=== PATIENT | female | born 1970 | race Hispanic/Latino ===

== ENCOUNTER 2022-11-23 11:30 | Emergency (ER) | payer OTHER ==
--- OUTSIDE RECORDS SUMMARY | 2022-11-23 11:33 | XMS REPORT | Continuity of Care Document ---
:1970 Author Organization [facility] t Address [address] [place] [address] Care Team Providers Name Role Phone Mathew Lawson MD, Laurent Primary Care Physician [phone] Marcie Narvaez Attending Clinician Unavailable Leann Hackett LVN Attending Clinician Unavailable Tracey MONAHAN, Femi Attending Clinician Manny Wells MD Attending Clinician [phone] Rosi Liu MD Attending Clinician Shahab Sylvester MD Attending Clinician [phone] Danelle Castillo MD Attending Clinician Physician, No Primary or Family Admitting Clinician Unavaila SHAHAB Barnes Admitting Clinician Unavailable Payers Payer Name Policy Type Policy Number Effective Date Expiration Date S ource Problems Condition Condition Condition Status Onset Resolution Last Treating Co mments Source Name Details Category Date Date Treatment Clinician Date - - Diagnosis Active 2020-112021-09-01 Memoria ENCNTR ENCNTR 0-06 12:01:00 l SCREEN SCREEN 00:01: [place] MAMMOGRAM MAMMOGRAM 00 FOR MA FOR MA Active 08/23/2021 SARMAD OPID [place] Acute Acute Disease Active [facility]i liver liver 12-12 st failure failure 00:00: Hospita without without 00 l hepatic hepatic coma coma Allergies, Adverse Reactions, Alerts This patient has no known allergies or adverse reactions. Social History Social Habit Start Date Stop Date Quantity Comments Source Sex Assigned At [birth year] [facility] 00:00:00 00:00:00 Smoking Status Start Date Stop Date Source Never smoked tobacco [facility] Medications Ordered Filled Start Stop Current Ordering Indication Dosage Frequency Signature Comments Components Source Medication Medication Date Date Medication? Clinician (SIG) Name Name famotidine Yes 20mg Take 20 mg M ethodi (PEPCID) 20 5-[address] MG tablet 09:28: daily. Hospit a 41 l Lactobacill Yes 1{tbl} QD Take 1 Me thodi us 5-[address] acidoph-L.b 09:28: mouth Hospi ta ulgar 41 daily. l (FLORANEX) 1 million cell tablet famotidine Yes 20mg Take 20 mg M ethodi (PEPCID) 20 5-[address] MG tablet 09:28: daily. Hospit a 41 l Lactobacill Yes 1{tbl} QD Take 1 Me thodi us 5-[address] acidoph-L.b 09:28: mouth Hospi ta ulgar 41 daily. l (FLORANEX) 1 million cell tablet gabapentin 2020- No 100mg Q.5D Take 1 Met hodi (Neurontin) 5-05 06-[address] 100 mg 00:00: 04:59 (100 mg Hospita capsule 00 :00 total) by l mouth 2 (two) times a day for 30 days. spironolact Yes Method i one 3-19 st (ALDACTONE) 00:00: Hospit a 50 MG 00 l tablet spironolact Yes Method i one 3-19 st (ALDACTONE) 00:00: Hospit a 50 MG 00 l tablet mirtazapine 2020- No 15mg QD Take 1 Met hodi (Remeron) 3-03 04-03 tablet (15 st 15 MG 00:00: 04:59 mg total) Hospit a tablet 00 :00 by mouth l nightly for 30 days. spironolact No 50mg QD Take 1 Met hodi one 12-2308 tablet (50 st (Aldactone) 00:00: 05:59 mg total) Hospita 50 MG 00 :00 by mouth l tablet daily for 30 days. folic acid No 1mg QD Take 1 Meth lisa (FOLVITE) 1 12-15 tablet (1 st MG tablet 00:00: 05:59 mg total) Ho spita 00 :00 by mouth l daily for 30 days. Immunizations Ordered Immunization Filled Immunization Date Status Commen ts Source Name Name [facility] COVID-19 [facility] 2021-03-14 Completed Meth odist VACCINATION 00:00:00 [facility] PFIZER COVID-19 MRNA 2021-03-14 Completed Meth odist VACCINATION 00:00:00 [facility] PFIZER COVID-19 MRNA 2021-02-21 Completed Meth odist VACCINATION 00:00:00 [facility] PFIZER COVID-19 [facility] 2021-02-21 Completed Meth odist VACCINATION 00:00:00 Hospital Vital Signs Vital Name Observation Time Observation Value Comments Source Systolic blood 2021-03-22 14:28:00 127 mm[Hg] [facility] pressure Diastolic blood 2021-03-22 14:28:00 63 mm[Hg] [facility] pressure Heart rate 2021-03-22 14:28:00 72 /min [facility] Body height 2021-03-22 14:28:00 149.9 cm [facility] Body weight 2021-03-22 14:28:00 56.337 kg [facility] BMI 2021-03-22 14:28:00 25.09 kg/m2 [facility] Oxygen saturation in 2021-03-22 14:28:00 100 /min [facility] Arterial blood by Pulse oximetry Body temperature 2021-01-18 15:39:00 36.67 Meggan [facility] Respiratory rate 2020-12-14 21:19:52 18 /min [facility] Procedures Procedure Date / Time Performing Clinician Source Performed CBC WITH PLATELET AND 2021-03-20 16:21:00 Femi Webb [facility] DIFFERENTIAL COMPREHENSIVE METABOLIC 2021-03-20 16:21:00 Tracey, Femi [facility] PANEL PROTHROMBIN TIME WITH INR 2021-03-20 16:21[facility] WITH PLATELET AND 2021-01-18 16:45:00 [facility] DIFFERENTIAL COMPREHENSIVE METABOLIC 2021-01-18 [facility] WITH INR 2021-01-18 16:45:00 [facility] CBC WITH PLATELET AND 2020-12-30 19:07:00 [facility] DIFFERENTIAL COMPREHENSIVE METABOLIC 2020-12-30 [facility]:07[facility] PROTHROMBIN TIME WITH INR 2020-12-30 19:07:00 [facility] CBC WITH PLATELET AND 2020-12-20 17:23:00 [facility] DIFFERENTIAL BASIC METABOLIC PANEL 2020-12-20 17:23[facility] 2020-12-20 17:23:00 [facility] PROTHROMBIN TIME WITH INR 2020-12-20 17:23:00 [facility] HC COMPLETE BLD COUNT 2020-12-14 10:25:00 [facility] Ebrahim BASIC METABOLIC PANEL 2020-12-14 10:25:00 [facility] Ebrahim MAGNESIUM LEVEL 2020-12-14 10:25:00 Shahab Sylvester Ho spital Ebrahim PHOSPHORUS LEVEL 2020-12-14 10:25:00 Shahab Sylvester H ospital Ebramem PROTHROMBIN TIME WITH INR 2020-12-14 10:25:00 [facility] Ebrahim ESTIMATED GFR 2020-12-14 10:25:00 Shahab Sylvester Ho spital Ebrahim HEPATIC FUNCTION PANEL 2020-12-14 10:25:00 [facility] Ebrahim OSMOLALITY, SERUM 2020-12-13 19:00:00 [facility] OSMOLALITY, URINE 2020-12-13 18:00:00 [facility] SODIUM LEVEL 2020-12-13 13:39:00 [facility] spital [facility] HCG QUALITATIVE, URINE 2020-12-13 09:17:00 [facility] SCREEN URINE CULTURE 2020-12-13 09:17:00 [facility] URINALYSIS SCREEN AND 2020-12-13 09:17:00 [facility] MICROSCOPY, WITH REFLEX TO CULTURE FOLATE LEVEL 2020-12-13 09:02:00 Willie Ferreira [facility] HEPATITIS A ANTIBODY 2020-12-13 09:02:00 [facility] TOTAL HEPATITIS B CORE ANTIBODY 2020-12-13 09:02:00 [facility] TOTAL HEPATITIS B SURFACE 2020-12-13 09:02:00 [facility] ANTIBODY HEPATITIS B SURFACE 2020-12-13 09:02:00 [facility]av[facility]unesTapia [facility] ANTIGEN VITAMIN B12 LEVEL 2020-12-13 09:02:00 [facility] TOTAL IRON BINDING 2020-12-13 09:02:00 [facility] CAPACITY LIVER-KIDNEY MICROSOME 2020-12-13 09:02:00 [facility] AB, IGG IMMUNOGLOBULIN A 2020-12-13 09:02:00 [facility] PROTHROMBIN TIME WITH INR 2020-12-13 09:02:00 [facility] HEPATIC FUNCTION PANEL 2020-12-13 09:02:00 [facility] MAGNESIUM LEVEL 2020-12-13 09:02:00 Shahab Sylvester Ho spital Ebrahim PHOSPHORUS LEVEL 2020-12-13 09:02:00 Shahab Sylvester H ospital Ebrahim HC COMPLETE BLD COUNT 2020-12-13 09:02:00 [facility] W/AUTO DIFF Ebrahim BASIC METABOLIC PANEL 2020-12-13 09:02:00 [facility] Ebrahim ESTIMATED GFR 2020-12-13 09:02:00 Shahab Sylvester Ho spital [facility] FACTOR V ASSAY 2020-12-13 09:02:00 Shahab Sylvester Ho spital Ebrahim HEPATITIS A ANTIBODY IGM 2020-12-13 09:02:00 DaishaRosi [facility] ANTI SMOOTH MUSCLE AB 2020-12-13 09:02:00 [facility] TITER ALCOHOL LEVEL, BLOOD 2020-12-13 09:02:00 Patricia georgemad [facility] HEPATITIS C ANTIBODY 2020-12-13 09:02:00 [facility] ALPHA-1 ANTITRYPSIN LEVEL 2020-12-13 09:02:00 [facility] ANTI SMOOTH MUSCLE AB 2020-12-13 09:02:00 [facility] SCREEN CERULOPLASMIN LEVEL 2020-12-13 09:02:00 [facility] FERRITIN LEVEL 2020-12-13 09:02:00 [facility] n[facility]mad [facility] CT ABDOMEN PELVIS W WO 2020-12-13 06:40:14 [facility] CONTRAST COVID-19 QUALITATIVE 2020-12-13 05:47:00 Daisha Rosi [facility] RT-PCR HC COMPLETE BLD COUNT 2020-12-13 03:47:00 Norm Deal [facility] W/AUTO DIFF COMPREHENSIVE METABOLIC 2020-12-13 03:47:00 [facility] PANEL LIPASE LEVEL 2020-12-13 03:47:00 [facility] AMYLASE LEVEL 2020-12-13 03:47:00 [facility] ESTIMATED GFR 2020-12-13 03:47:00 [facility] BILIRUBIN DIRECT 2020-12-13 03:47:00 [facility] CT ABD/PELVIC EXTERNAL 2020-12-12 21:42:00 DaishaRosi [facility] STUDY Plan of Care Planned Activity Planned Date Details Comments Source Future Scheduled 2022-11-12 HEPATITIS B VACCINES Met [facility] Test 07:11:52 (1 of 3 - 3-dose series) [code = HEPATITIS B VACCINES (1 of 3 - 3-dose series)] Future Scheduled 2022-11-12 Screening for [facility] Test 07:11:52 malignant neoplasm of cervix (procedure) [code = 417075621] Future Scheduled 2022-11-12 BREAST CANCER [facility] Test 07:11:52 SCREENING [code = BREAST CANCER SCREENING] Future Scheduled 2022-11-12 COLONOSCOPY SCREENING [facility] Test 07:11:52 [code = COLONOSCOPY SCREENING] Future Scheduled 2022-11-12 COVID-19 VACCINE (3 - Me [facility] Test 07:11:52 Booster for Pfizer series) [code = COVID-19 VACCINE (3 - Booster for Pfizer series)] Future Scheduled 2022-11-12 SHINGLES VACCINES (1 Met [facility] Test 07:11:52 of 2) [code = SHINGLES VACCINES (1 of 2)] Future Scheduled 2022-11-12 INFLUENZA VACCINE [facility] Test 07:11:52 [code = INFLUENZA VACCINE] Future Scheduled 2021-11-02 Screening for [facility] Test 12:44:30 malignant neoplasm of cervix (procedure) [code = 543502888] Future Scheduled 2021-11-02 BREAST CANCER [facility] Test 12:44:30 SCREENING [code = BREAST CANCER SCREENING] Future Scheduled 2021-11-02 COLONOSCOPY SCREENING [facility] Test 12:44:30 [code = COLONOSCOPY SCREENING] Future Scheduled 2021-11-02 [facility]INES [facility] Test 12:44:30 (#1) [code = SHINGLES VACCINES (#1)] Future Scheduled 2021-11-02 INFLUENZA VACCINE [facility] Test 12:44:30 [code = INFLUENZA VACCINE] Future Scheduled 2021-11-02 COVID-19 VACCINE (3 - [facility] Test 12:44:30 Booster for Pfizer series) [code = COVID-19 VACCINE (3 - Booster for Pfizer series)] Encounters Start End Encounter Admission Attending Care Care Encounter Source Date/Time Date/Time Type Type Clinicians Facility Department ID 2022-10-02 2022-10-02 Inpatient Marcie Gibbons [facility] RADI [id number] [facility] 11:00:00 11:00:00 21 [facility] 2021-09-01 2021-09-02 Outpt Diag nullFlavo [facility] [id number] [facility] 16:48:00 04:59:00 Services r Outpatient 00 l Imaging [facility] 2021-05-11 2021-05-11 Orders Serban, 1.2.840.1 [id number] Methodi 00:00:00 00:00:00 Only Leann [address]017.1.[address] 3.430.2.7 Hospit a .3.872161 l .8 2021-04-03 2021-04-03 Telemedici Tracey, 1.2.840.1 [id number] Methodi 15:26:31 15:35:15 [address] Femi [address]66.1.[address] 3.430.2.7 Hospit a .3.502066 l .8 2021-03-22 2021-03-22 Office Tracey, 1.2.840.1 [id number] Methodi 09:18:30 10:13:25 Visit Femi 65017.1.[address] 3.430.2.7 Hospit a .3.816319 l .8 2021-03-22 2021-03-22 Travel 1.2.840.1 1.2.117.144 [id number] Methodi 00:00:00 00:00:[address] 3.430.2.7 0.2.7.3.698 Ho spita .3.116145 084.8 l .8 2021-03-14 2021-03-14 Clinical Russell, 1.2.840.1 [id number] Methodi 12:00:55 12:05:55 Support Manny 91502.1.[address] P. 3.430.2.7 Hospit a .3.125361 l .8 2021-02-21 2021-02-21 Clinical 1.2.840.1 [id number] Methodi 12:03:35 12:08:[address] 3.430.2.7 Hospit a .3.241752 l .8 2021-01-18 2021-01-18 Office Tracey, 1.2.840.1 [id number] Methodi 09:36:07 10:40:55 Visit Femi 19589.1.[address] 3.430.2.7 Hospit a .3.175322 l .8 2021-01-18 2021-01-18 Travel 1.2.840.1 1.2.843.890 [id number] Methodi 00:00:00 00:00:[address] 3.430.2.7 0.2.7.3.698 Ho spita .3.670094 084.8 l .8 2020-12-23 2020-12-23 [facility] Serban, 1.2.840.1 [id number] Methodi 00:00:00 00:00:00 Only Leann 80560.1.[address] 3.430.2.7 Hospit a .3.452009 l .8 2020-12-21 2020-12-21 Office Tracey, 1.2.840.1 [id number] Methodi 12:20:38 12:52:50 Visit Femi 28342.1.[address] 3.430.2.7 Hospit a .3.069198 l .8 2020-12-21 2020-12-21 Travel 1.2.840.1 1.2.723.033 [id number] Methodi 00:00:00 00:00:[address] 3.430.2.7 0.2.7.3.698 Ho spita .3.449931 084.8 l .8 2020-12-16 2020-12-16 Orders Serban, 1.2.840.1 [id number] Methodi 00:00:00 00:00:00 Only Leann 58953.1.[address] 3.430.2.7 Hospit a .3.317796 l .8 2020-12-12 2020-12-14 Hospital Rosi Liu 1.2.840.1 [id number] Methodi 19:30:00 18:15:00 Encounter Shahab Sylvester 85631.1.[address] Vo, Le 3.430.2.7 Hospit a .3.604811 l .8 Results Test Description Test Time Test Comments Results Result Comments Source Comprehensive metabolic panel 2021-03-21 08:45:00 Test Item Value Reference Range Interpretation Comme nts Glucose (test code = 99 mg/dL 65-99 Fastin g reference 2345-7) interval BUN (test code = 3094-0) 9 mg/dL 7-25 Creatinine (test code = 0.49 mg/dL 0.50-1.10 L 2160-0) EGFR Non-Afr. Belarusian See_Comment [Aut omated message] (test code = 2775) The [employer] which generated this result transmitted ref erence range: > OR = 6 0 mL/min/1.73m2. The reference range was not used to int erpret this result as normal/abnormal . EGFR See_Comment [Auto mated message] (test code = 2774) The [employer] which generated this result transmitted ref erence range: > OR = 6 0 mL/min/1.73m2. The reference range was not used to int erpret this result as normal/abnormal . BUN/creatinine ratio (test See_Comment [Automated message] code = 3097-3) The system ich generated this result transmitted ref erence range: 6 - 22 ( calc). The reference r maria luz was not used to interpret this result as normal/abnor mal. Sodium (test code = 136 mmol/L 288-220 1218-2) Potassium (test code = 3.9 mmol/L 3.5-5.3 2823-3) Chloride (test code = 104 mmol/L 98-110 2075-0) CO2 (test code = 8-9) 24 mmol/L 20-32 Calcium (test code = 9.7 mg/dL 8.6-10.2 29425-3) Protein (test code = 7.4 g/dL 6.1-8.1 2885-2) Albumin, S (test code = 4.0 g/dL 3.6-5.1 1751-7) Globulin, total (test code See_Comment [Automated message] = 63456-2) The system [employer] h generated this result transmitted ref erence range: 1.9 - 3. 7 g/dL (calc). The ref erence range was not u sed to interpret this result as normal/abnor mal. Albumin/globulin ratio See_Comment [Aut omated message] (test code = 1759-0) The [facility] tem which generated this result transmitted ref erence range: 1.0 - 2. 5 (calc). The ref erence range was not u sed to interpret this result as normal/abnor mal. Total bilirubin (test code 2.0 mg/dL 0.2-1.2 H = 1974-) Alkaline phosphatase (test 98 U/L 31-125 code = 6768-6) AST (test code = 1920-8) 37 U/L 10-35 H ALT (test code = 1742-6) 17 U/L 6-29 ARTHUR (test code = ARTHUR) FASTING:YES FASTING: YES RAC (test code = RAC) Performing Organization Information: Site ID: RGA [facility]: [facility] Address: [address] [place] [id number] Director: Sb Collier Lab Interpretation (test Abnormal code = 57651-2) [facility] with platelet and [id number] 08:45:00 Test Item Value Reference Range Interpretation Comments WBC (test code = See_Comment [Automated 6690-2) message] The system which generated this result transmitted reference range : 3.8 - 10.8 Thousand/uL. Th e reference range was not used to interpret this result as normal/abnormal . RBC (test code = See_Comment L [Automated 789-8) message] The system which generated this result transmitted reference range : 3.80 - 5.10 Million/uL. The reference range was not used to interpret this result as normal/abnormal . HGB (test code = 12.3 g/dL 11.7-15.5 718-7) HCT (test code = 36.3 % 35.0-45.0 4544-3) MCV (test code = 98.9 fL 80.0-100.0 787-2) MCH (test code = 33.5 pg 27.0-33.0 H 785-6) MCHC (test code = 33.9 g/dL 32.0-36.0 786-4) RDW (test code = 11.8 % 11.0-15.0 788-0) Platelet count (test See_Comment [Autom ated code = 777-3) message] The system which generated this result transmitted reference range : 140 - 400 Thousand/uL. Th e reference range was not used to interpret this result as normal/abnormal . MPV (test code = 11.9 fL 7.5-12.5 776-5) Neutrophils, See_Comment [Automated absolute (test code message] The = 751-8) system which generated this result transmitted reference range : 1,500 - 7,800 cells/uL. The reference range was not used to interpret this result as normal/abnormal . Lymphocytes, See_Comment [Automated absolute (test code message] The = 731-0) system which generated this result transmitted reference range : 850 - 3,900 cells/uL. The reference range was not used to interpret this result as normal/abnormal . Monocytes, absolute See_Comment [Automa jojo (test code = 742-7) message] The system which generated this result transmitted reference range : 200 - 950 cells/uL. The reference range was not used to interpret this result as normal/abnormal . Eosinophils, See_Comment [Automated absolute (test code message] The = 711-2) system which generated this result transmitted reference range : 15 - 500 cells/uL. The reference range was not used to interpret this result as normal/abnormal . Basophils, absolute See_Comment [Automa jojo (test code = 704-7) message] The system which generated this result transmitted reference range : 0 - 200 cells/u L. The reference range was not used to interpr et this result as normal/abnormal . Neutrophils (test 53.1 % code = 770-8) Lymphocytes (test 33.3 % code = 736-9) Monocytes (test code 7.2 % = 5905-5) Eosinophils (test 5.6 % code = 713-8) Basophils + RC (test 0.8 % code = 706-2) ARTHUR (test code = FASTING:YES ARTHUR) FASTING: YES RAC (test code = Performing RAC) Organization Information: Site ID: [facility] Name: [facility] Address: [address] [place] [id number] Director: Sb Collier Lab Interpretation Abnormal (test code = 80914-4) [facility] [id number] 08:45:00 Test Item Value Reference Range Interpretation Comments INR (test code = Reference R maria luz 6301-6) 0.9-1.1Moderate -i ntensity Warfar in Therapy 2.0-3.0Higher-i nt ensity Warfarin Therapy 3.0-4.0 Prothrombin time See_Comment H For additio nal (test code = 5902-2) informa tion, please refer [email or web address] io n.questdiagnost onkea/faq/FAQ10 4( This link is being provided for informational/e du cational purpos es only.) [Automat ed message] The system which generated this result transmitted reference range : 9.0 - 11.5 sec. The reference range was not used to interpr et this result as normal/abnormal . ARTHUR (test code = FASTING:YES ARTHUR) FASTING: YES RAC (test code = Performing RAC) Organization Information: Site ID: [facility] Name: [facility] Address: [address] [place] [phone] Director: Sb Collier Lab Interpretation Abnormal (test code = 01636-0) [facility] metabolic [id number] 10:48:00 Test Item Value Reference Range Interpretation Comments Glucose (test code = 88 mg/dL 65-99 Fasti ng 2345-7) reference interval BUN (test code = 7 mg/dL 7-25 3094-0) Creatinine (test 0.45 mg/dL 0.50-1.10 L code = 2160-0) EGFR Non-Afr. See_Comment [Automated Belarusian (test code message] The = 3425) system which generated this result transmitted reference range : > OR = 60 mL/min/1.73m2. The reference range was not used to interpr et this result as normal/abnormal . EGFR See_Comment [Automated Belarusian (test code message] The = 56647-2) system which generated this result transmitted reference range : > OR = 60 mL/min/1.73m2. The reference range was not used to interpr et this result as normal/abnormal . BUN/creatinine ratio See_Comment [Autom ated (test code = 3097-3) message ] The system which generated this result transmitted reference range : 6 - 22 (calc). The reference range was not used to interpr et this result as normal/abnormal . Sodium (test code = 138 mmol/L 415-612 9133-2) Potassium (test code 3.6 mmol/L 3.5-5.3 = 2823-3) Chloride (test code 108 mmol/L 98-110 = 2075-0) CO2 (test code = 25 mmol/L 20-32 8-9) Calcium (test code = 8.8 mg/dL 8.6-10.2 75095-0) ARTHUR (test code = FASTING:YESFASTING ARTHUR) : YES RAC (test code = Performing RAC) Organization Information: Site ID: RGA Name: [facility] Address: [address] [place] [phone] Director: Sb Collier [facility] Interpretation Abnormal (test code = 54281-7) [facility] [id number] 10:48:00 Test Item Value Reference Range Interpretation Comments Protein (test code = 6.6 g/dL 6.1-8.1 5-2) Albumin, S (test 2.9 g/dL 3.6-5.1 L code = 1751-05) Globulin, total See_Comment [Automated (test code = message] The ) system which generated this result transmitted reference range : 1.9 - 3.7 g/dL (calc). The reference range was not used to interpret this result as normal/abnormal . Albumin/globulin See_Comment L [Automated ratio (test code = message] The ) system which generated this result transmitted reference range : 1.0 - 2.5 (calc ). The reference range was not used to interpr et this result as normal/abnormal . Total bilirubin 8.4 mg/dL 0.2-1.2 H (test code = 1974-12) Bilirubin direct 3.9 mg/dL See_Comment H [Automated (test code = 1968-05) message ] The system which generated this result transmitted reference range : < OR = 0.2. The reference range was not used to interpret this result as normal/abnormal . Bilirubin, indirect See_Comment H [Automa jojo (test code = 1970-11) message ] The system which generated this result transmitted reference range : 0.2 - 1.2 mg/dL (calc). The reference range was not used to interpret this result as normal/abnormal . Alkaline phosphatase 194 U/L 31-125 H (test code = 6768-6) AST (test code = 105 U/L 10-35 H 1920-8) ALT (test code = 39 U/L 6-29 H 1742-6) ARTHUR (test code = FASTING:YESFASTING ARTHUR) : YES RAC (test code = Performing RAC) Organization Information: Site ID: [id number] Name: [facility] Address: [address] [place] [id number] Director: Sb [facility] Interpretation Abnormal (test code = 05991-6) [facility]
[2022-11-23 12:32] LABS: MCV 116.2 fL (80-100); MPV 7.2 fL (7.6-11.3); RBC Red Blood Cell Count 2.41 M/uL (3.86-4.86)
[2022-11-23 13:37] LABS: Blood Morphology Comment NOTED (NOT SEEN); Macrocytosis 3+; Platelet Estimate ADEQ; White Blood Cell Scan OK (OK)
[2022-11-23 14:07] LABS: Albumin 1.9 g/dL (3.4-5.0); Magnesium 1.8 mg/dL (1.6-2.4); Phosphorus 2.6 mg/dL (2.5-4.9); Potassium 2.6 mmol/L (3.5-5.1)
[2022-11-23] MEDS ORDERED: POTASSIUM 25 MEQ EFFERV TAB ONE (14:26)
[2022-11-23] MEDS ORDERED: KCL 20 MEQ/100 mL IVPB 200 ML IV ONE (14:26)
--- NOTE | 2022-11-23 16:59 | EDPHYS ---
Physician Documentation [facility] Name: Flori Person Age: 52 yrs Sex: Female : 1970 Arrival Date: 11/23/2022 Time: 11:32 Bed 24 Private MD: Marcie Narvaez ED Physician Natanael Rocha HPI: 11/23 15:50 This 52 yrs old Female presents to ER via Ambulatory with complaints of snw Abnormal Lab Results - potassium. 15:50 Onset: The symptoms/episode began/occurred acutely. Associated signs and symptoms: The snw patient has no apparent associated signs or symptoms. The patient has been recently seen by a physician:. 15:51 Severity of symptoms: At their worst the symptoms were mild. 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 - Social history:: Smoking status: Patient denies any tobacco usage or history of. ROS: 15:50 All other systems are negative. snw Exam: 15:48 Constitutional: This is a well developed, well nourished patient who is awake, alert, snw and in no acute distress. Head/Face: Normocephalic, atraumatic. ENT: Nares patent. No nasal discharge, no septal abnormalities noted. Tympanic membranes are normal and external auditory canals are clear. Oropharynx with no redness, swelling, or masses, exudates, or evidence of obstruction, uvula midline. Mucous membranes moist. Neck: Trachea midline, no thyromegaly or masses palpated, and no cervical lymphadenopathy. Supple, full range of motion without nuchal rigidity, or vertebral point tenderness. No Meningismus. Chest/axilla: Normal chest wall appearance and motion. Nontender with no deformity. No lesions are appreciated. Respiratory: Lungs have equal breath sounds bilaterally, clear to auscultation and percussion. No rales, rhonchi or wheezes noted. No increased work of breathing, no retractions or nasal flaring. 15:48 Back: No spinal tenderness. No costovertebral tenderness. Full range of motion. MS/ Extremity: Pulses equal, no cyanosis. Neurovascular intact. Full, normal range of motion. Neuro: Awake and alert, GCS 15, oriented to person, place, time, and situation. Cranial nerves II-XII grossly intact. Motor strength 5/5 in all extremities. Sensory grossly intact. Cerebellar exam normal. Normal gait. Psych: Awake, alert, with orientation to person, place and time. Behavior, mood, and affect are within normal limits. 15:48 Eyes: Sclera: icterus, is present. 15:48 Abdomen/GI: Inspection: distension, gravid appearance, Palpation: nontender, in all quadrants. 15:48 Skin: Appearance: Color: jaundiced. Vital Signs: 11:53 BP 113 / 83; Pulse 106; Resp 18; Temp 98.7; Pulse Ox 99% ; Weight 56.25 kg; Height 4 ap3 ft. 11 in. (149.86 cm); 13:01 BP 103 / 75; Pulse 100; Resp 20; Pulse Ox 100% on R/A; em6 14:00 BP 123 / 82; Pulse 100; Resp 18; Pulse Ox 100% on R/A; em6 15:30 BP 115 / 70; Pulse 84; Resp 18; Pulse Ox 100% on R/A; em6 16:30 BP 103 / 68; Pulse 91; Resp 20; Pulse Ox 98% on R/A; em6 11:53 Body Mass Index 25.04 (56.25 kg, 149.86 cm) ap3 MDM: 12:04 Patient medically screened. snw 16:57 Differential Diagnosis altered mental status, hepatorenal syndrome. Data reviewed: snw vital signs, nurses notes. Data interpreted: Pulse oximetry: on room air is 98 %. Interpretation: normal. Counseling: I had a detailed discussion with the patient and/or guardian regarding: the historical points, exam findings, and any diagnostic results supporting the discharge/admit diagnosis, lab results, the need for outpatient follow up, to return to the emergency department if symptoms worsen or persist or if there are any questions or concerns that arise at home. Response to treatment: There is no appreciated change of the patient's symptoms at this time. Special discussion: Based on the history and exam findings, there is no indication for further emergent testing or inpatient evaluation. I discussed with the patient/guardian the need to see the lease analyst for further evaluation of the symptoms. I discussed with the patient/guardian the need to see the primary care provider for further evaluation of the symptoms. 11/23 11:43 Order name: CMP; Complete Time: 14:15 snw 11/23 11:43 Order name: CBC with Diff; Complete Time: 13:40 snw 11/23 11:43 Order name: Magnesium; Complete Time: 14:15 snw 11/23 11:43 Order name: Phosphorus; Complete Time: 14:15 snw 11/23 12:36 Order name: CBC Smear Scan; Complete Time: 13:40 EDMS 11/23 11:44 Order name: IV Saline Lock; Complete Time: 12:24 snw 11/23 12:40 Order name: Labs - recollect needed: recollect chemistries hemolyzed; Complete Time: eb 12:49 Administered Medications: 14:41 Drug: Potassium Effervescent Tablet 50 mEq Route: PO; em6 15:00 Follow up: Response: No adverse reaction em6 14:42 Drug: Potassium Chloride 20 mEq Route: IV; Rate: calculated rate; Site: left em6 antecubital; 15:53 Follow up: Response: No adverse reaction; IV Status: Completed infusion; IV Intake: em6 100ml 15:54 Drug: Potassium Chloride 20 mEq Route: IV; Rate: calculated rate; Site: left em6 antecubital; 16:53 Follow up: Response: No adverse reaction; IV Status: Completed infusion; IV Intake: em6 100ml Disposition: 16:14 Co-signature as Attending Physician, Natanael OCAMPO was immediately available on-site ms3 in the Emergency Department for consultation in the care of the patient. 16:59 Chart complete. snw Disposition Summary: 11/23/22 16:59 Discharge Ordered Location: Home snw Condition: Stable snw Diagnosis - Hypokalemia snw Followup: snw - With: Marcie Narvaez - When: 1 - 2 days - Reason: Worsening of condition, Recheck today's complaints, Continuance of care, Re-evaluation by your physician Discharge Instructions: - Discharge Summary Sheet snw - Potassium Content of Foods snw - Hypokalemia snw Forms: - Medication Reconciliation Form snw - Thank You Letter snw - Antibiotic Education snw - Prescription Opioid Use snw Signatures: Dispatcher [employer] EDMS Charity Gil, SERGIO HRIS COORDINATOR-Csnw Florence Keys RN RN ap3 Leidy Mendes Marcus, DO DO ms3 Margie Bhakta, RN RN em6
--- NOTE | 2022-11-23 16:59 | ER ---
Nurse's Notes [facility] Name: Flori Person Age: 52 yrs Sex: Female : 1970 Arrival Date: 11/23/2022 Time: 11:32 Bed 24 Private MD: Marcie Narvaez Diagnosis: Hypokalemia Presentation: 11/23 11:53 Chief complaint: Patient states: she was sent by her liver dr for low potassium. ap3 Coronavirus screen: At this time, the client does not indicate any symptoms associated with coronavirus-19. Ebola Screen: No symptoms or risks identified at this time. Initial Sepsis Screen: Does the patient meet any 2 criteria?. Initial Sepsis Screen: Does the patient meet any 2 criteria? No. Patient's initial sepsis screen is negative. Does the patient have a suspected source of infection? No. Patient's initial sepsis screen is negative. Risk Assessment: Do you want to hurt yourself or someone else? Patient reports no desire to harm self or others. Onset of symptoms was November 23, 2022. 11:53 Method Of Arrival: Ambulatory ap3 11:53 Acuity: MADELINE 3 ap3 Triage Assessment: 11:56 General: Appears in no apparent distress. Behavior is calm, cooperative. Pain: Denies ap3 pain. Neuro: Level of Consciousness is awake, alert, obeys commands, Oriented to person, place, time, situation. Cardiovascular: Patient's skin is warm and dry. Respiratory: Airway is patent Respiratory effort is even, unlabored, Respiratory pattern is regular, symmetrical. GI: Abdomen is distended. Derm: Skin is jaundiced. 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 - Social history:: Smoking status: Patient denies any tobacco usage or history of. Screenin:57 [facility] ED Fall Risk Assessment (Adult) History of falling in the last 3 months, ap3 including since admission No falls in past 3 months (0 pts). Abuse screen: Denies threats or abuse. Nutritional screening: No deficits noted. Tuberculosis screening: No symptoms or risk factors identified. Assessment: 13:00 General: Appears in no apparent distress. Behavior is cooperative. Pain: Denies pain. em6 Neuro: Level of Consciousness is awake, alert, obeys commands, Oriented to person, place, time, situation. Cardiovascular: Patient's skin is warm and dry. Respiratory: Airway is patent Respiratory effort is even, unlabored, Respiratory pattern is regular, symmetrical. GI: Abdomen is round distended, Bowel sounds present X 4 quads. Abd is rigid X 4 quads. : No signs and/or symptoms were reported regarding the genitourinary system. EENT: Eyes jaundice noted. Derm: Skin is jaundiced. Musculoskeletal: Circulation, motion, and sensation intact. Range of motion: intact in all extremities. 14:14 Reassessment: Charity, DIRECTOR FRAUD notified of critical lab values, Potassium and Tbili. ss 14:20 Reassessment: Patient appears in no apparent distress at this time. No changes from em6 previously documented assessment. Patient and/or family updated on plan of care and expected duration. Pain level reassessed. Patient is alert, oriented x 3, equal unlabored respirations, skin warm/dry/pink. 15:20 Reassessment: Patient appears in no apparent distress at this time. No changes from em6 previously documented assessment. Patient and/or family updated on plan of care and expected duration. Pain level reassessed. Patient is alert, oriented x 3, equal unlabored respirations, skin warm/dry/pink. 16:20 Reassessment: Patient appears in no apparent distress at this time. No changes from em6 previously documented assessment. Patient and/or family updated on plan of care and expected duration. Pain level reassessed. Patient is alert, oriented x 3, equal unlabored respirations, skin warm/dry/pink. Vital Signs: 11:53 BP 113 / 83; Pulse 106; Resp 18; Temp 98.7; Pulse Ox 99% ; Weight 56.25 kg; Height 4 ap3 ft. 11 in. (149.86 cm); 13:01 BP 103 / 75; Pulse 100; Resp 20; Pulse Ox 100% on R/A; em6 14:00 BP 123 / 82; Pulse 100; Resp 18; Pulse Ox 100% on R/A; em6 15:30 BP 115 / 70; Pulse 84; Resp 18; Pulse Ox 100% on R/A; em6 16:30 BP 103 / 68; Pulse 91; Resp 20; Pulse Ox 98% on R/A; em6 11:53 Body Mass Index 25.04 (56.25 kg, 149.86 cm) ap3 ED Course: 11:32 Patient arrived in ED. as 11:33 Marcie Narvaez is Private Physician. as 11:34 Marcie Narvaez is Private Physician. as 11:54 Triage completed. ap3 11:57 Arm band placed on right wrist. ap3 12:04 Charity Gil FNP-C is PHCP. snw 12:04 Natanael Rocha DO is Attending Physician. snw 12:07 Margie Bhakta, SYDNI is Primary Nurse. em6 12:07 Bed in low position. Call light in reach. Side rails up X 1. Pulse ox on. NIBP on. Warm em6 blanket given. 12:24 Initial lab(s) drawn, by ED staff, sent to lab. Inserted saline lock: 20 gauge in left jw7 antecubital area, using aseptic technique. Blood collected. Missed attempt(s): 20 gauge in right antecubital area. Bleeding controlled, band aid applied, catheter tip intact. 12:24 Phosphorus Sent. jw7 12:24 Magnesium Sent. jw7 12:24 CBC with Diff Sent. jw7 12:25 CMP Sent. jw7 12:25 PT-INR Sent. jw7 12:49 Lab(s) recollected, by me, sent to lab. jw7 16:58 Marcie Narvaez is Referral Physician. snw 17:00 No provider procedures requiring assistance completed. IV discontinued, intact, em6 bleeding controlled, No redness/swelling at site. Pressure dressing applied. Administered Medications: 14:41 Drug: Potassium Effervescent Tablet 50 mEq Route: PO; em6 15:00 Follow up: Response: No adverse reaction em6 14:42 Drug: Potassium Chloride 20 mEq Route: IV; Rate: calculated rate; Site: left em6 antecubital; 15:53 Follow up: Response: No adverse reaction; IV Status: Completed infusion; IV Intake: em6 100ml 15:54 Drug: Potassium Chloride 20 mEq Route: IV; Rate: calculated rate; Site: left em6 antecubital; 16:53 Follow up: Response: No adverse reaction; IV Status: Completed infusion; IV Intake: em6 100ml Medication: 14:14 VIS not applicable for this client. ss Intake: 15:53 IV: 100ml; Total: 100ml. em6 16:53 IV: 100ml; Total: 200ml. em6 Outcome: 16:59 Discharge ordered by MD. hicks 17:00 Discharged to home via wheelchair. em6 17:00 Condition: stable 17:00 Discharge instructions given to patient, significant other, Instructed on discharge instructions, follow up and referral plans. Demonstrated understanding of instructions, follow-up care. 17:11 Patient left the ED. em6 Signatures: Charity Gil, SILK SPOOLER-C SILK SPOOLER-Jose Antoniow Annetta Bhakta Shelby, RN RN ss Prokisch, Amanda, RN RN ap3 Montse Murphy 7 Margie Bhakta RN RN em6
[2022-11-23 17:29] VITALS: TEMP 98.7
[2022-11-23 17:38] VITALS: BP 103/68; O2SAT 98
== END 2022-11-23 17:11 | disposition home or self-care (01) ==
LOC: ER 11:30
DX: E87.6 Hypokalemia (principal); K74.60 Unspecified cirrhosis of liver
CPT/HCPCS: 96365; 85025; 36415; 83735; 84100; 80053; 99284; 96366; J3480

== ENCOUNTER 2022-12-06 14:37 | Emergency (ER) | payer OTHER ==
--- OUTSIDE RECORDS SUMMARY | 2022-12-06 14:44 | XMS REPORT | Continuity of Care Document ---
:1970 Author Organization [facility] t Address [address] [place] [address] Care Team Providers Name Role Phone Mathew Lawson MD, Laurent Primary Care Physician [phone] Marcie Narvaez Attending Clinician Unavailable Leann Hackett LVN Attending Clinician Unavailable Tracey MONAHAN, Femi Attending Clinician Russell MONAHAN, Manny Fermin Attending Clinician [phone] Rosi Liu MD Attending Clinician Shahab Sylvester MD Attending Clinician [phone] Danelle Castillo MD Attending Clinician Physician, No Primary or Family Admitting Clinician Unavaila SHAHAB Barnes Admitting Clinician Unavailable Payers Payer Name Policy Type Policy Number Effective Date Expiration Date S ource Problems Condition Condition Condition Status Onset Resolution Last Treating Co mments Source Name Details Category Date Date Treatment Clinician Date Z11.17 - Z11.17 - Diagnosis Active 2020-112021-09-01 Memoria ENCNTR ENCNTR 0-06 12:01:00 l SCREEN SCREEN 00:01: [place] MAMMOGRAM MAMMOGRAM 00 FOR MA FOR MA Active 08/23/2021 MH OPID [place] Acute Acute Disease Active [facility] liver liver 1-25 st failure failure 00:00: Hospita without without 00 l hepatic hepatic coma coma Allergies, Adverse Reactions, Alerts This patient has no known allergies or adverse reactions. Social History Social Habit Start Date Stop Date Quantity Comments Source Sex Ass[birth year] At [birth year] [facility] 00:00:00 00:00:00 Smoking Status Start Date Stop Date Source Never smoked tobacco [facility] ospital Medications Ordered Filled Start Stop Current Ordering Indication Dosage Frequency Signature Comments Components Source Medication Medication Date Date Medication? Clinician (SIG) Name Name famotidine 0 Yes 20mg Take 20 mg M ethodi (PEPCID) 20 5-[address] MG tablet 09:28: daily. Hospit a 41 l Lactobacill 2020-0 Yes 1{tbl} QD Take 1 Me thodi us 5-[address] acidoph-L.b 09:28: mouth Hospi ta ulgar 41 daily. l (FLORANEX) 1 million cell tablet famotidine 2020-0 Yes 20mg Take 20 mg M ethodi (PEPCID) 20 5-[address] MG tablet 09:28: daily. Hospit a 41 l Lactobacill 2020-0 Yes 1{tbl} QD Take 1 Me thodi us 5-[address] acidoph-L.b 09:28: mouth Hospi ta ulgar 41 daily. l (FLORANEX) 1 million cell tablet famotidine 2020-0 Yes 20mg Take 20 mg M ethodi (PEPCID) 20 5-[address] MG tablet 09:28: daily. Hospit a 41 l Lactobacill 2020-0 Yes 1{tbl} QD Take 1 Me thodi us 5-[address] acidoph-L.b 09:28: mouth Hospi ta ulgar 41 daily. l (FLORANEX) 1 million cell tablet gabapentin 2020-0 202- No 100mg Q.5D Take 1 Met hodi (Neurontin) 5-05 06-[address] 100 mg 00:00: 04:59 (100 mg Hospita capsule 00 :00 total) by l mouth 2 (two) times a day for 30 days. spironolact 2020-0 Yes Method i one 3-19 st (ALDACTONE) 00:00: Hospit a 50 MG 00 l tablet spironolact 2020-0 Yes Method i one 3-19 st (ALDACTONE) 00:00: Hospit a 50 MG 00 l tablet spironolact Yes Method i one 02-03 st (ALDACTONE) 00:00: Hospit a 50 MG 00 l tablet mirtazapine No 15mg QD Take 1 Met hodi (Remeron) 01-18 04-03 tablet (15 st 15 MG 00:00: 04:59 mg total) Hospit a tablet 00 :00 by mouth l nightly for 30 days. spironolact No 50mg QD Take 1 Met hodi one 12-23 03-08 tablet (50 st (Aldactone) 00:00: 05:59 mg total) Hospita 50 MG 00 :00 by mouth l tablet daily for 30 days. folic acid 1mg QD Take 1 Meth lisa (FOLVITE) 1 12-15 tablet (1 st MG tablet 00:00: 05:59 mg total) Ho spita 00 :00 by mouth l daily for 30 days. Immunizations Ordered Immunization Filled Immunization Date Status Commen ts Source Name Name PFIZER COVID-19 MRNA 2021-03-14 Completed Meth odist VACCINATION 00:00:00 [facility] PFIZER COVID-19 MRNA 2021-03-14 Completed Meth odist VACCINATION 00:00:00 [facility] PFIZER COVID-19 MRNA 2021-03-14 Completed Meth odist VACCINATION 00:00:00 [facility] PFIZER COVID-19 MRNA 2021-02-21 Completed Meth odist VACCINATION 00:00:00 [facility] PFIZER COVID-19 MRNA 2021-02-21 Completed Meth odist VACCINATION 00:00:00 [facility] PFIZER COVID-19 MRNA 2021-02-21 Completed Meth odist VACCINATION 00:00:00 Hospital Vital Signs Vital Name Observation Time Observation Value Comments Source Systolic blood 2021-03-22 14:28:00 127 mm[Hg] Method [facility] Hospital pressure Diastolic blood 2021-03-22 14:28:00 63 mm[Hg] [facility] pressure Heart rate 2021-03-22 14:28:00 72 /min [facility] Body height 2021-03-22 14:28:00 149.9 cm [facility] Body weight 2021-03-22 14:28:00 56.337 kg [facility] BMI 2021-03-22 14:28:00 25.09 kg/m2 [facility] Oxygen saturation in 2021-03-22 14:28:00 100 /min [facility] Arterial blood by Pulse oximetry Body temperature 2021-01-18 15:39:00 36.67 Meggan [facility] Respiratory rate 2020-12-14 21:19:52 18 /min [facility] Procedures Procedure Date / Time Performing Clinician Source Performed CBC WITH PLATELET AND 2021-03-20 16:21:00 [facility] DIFFERENTIAL COMPREHENSIVE METABOLIC 2021-03-20 16:21:00 [facility] PANEL PROTHROMBIN TIME WITH INR 2021-03-20 16:21:00 [facility] CBC WITH PLATELET AND 2021-01-18 16:45:00 [facility] DIFFERENTIAL COMPREHENSIVE METABOLIC 2021-01-18 16:45:00 [facility] PANEL PROTHROMBIN TIME WITH INR 2021-01-18 16:45:00 [facility] CBC WITH PLATELET AND 2020-12-30 19:07:00 [facility] DIFFERENTIAL COMPREHENSIVE METABOLIC 2020-12-30 19:07:00 [facility] PANEL PROTHROMBIN TIME WITH INR 2020-12-30 19:07:00 [facility] CBC WITH PLATELET AND 2020-12-20 17:23:00 [facility] DIFFERENTIAL BASIC METABOLIC PANEL 2020-12-20 17:23:00 [facility] HEPATIC FUNCTION PANEL 2020-12-20 17:23:00 [facility] PROTHROMBIN TIME WITH INR 2020-12-20 17:23:00 [facility] HC COMPLETE BLD COUNT 2020-12-14 10:25:00 [facility] W/AUTO DIFF Ebrahim BASIC METABOLIC PANEL 2020-12-14 10:25:00 [facility] Ebrahim MAGNESIUM LEVEL 2020-12-14 10:25:00 [facility] PHOS[facility]US [facility] 2020-12-14 10:25:00 [facility] PROT[facility] TIME WITH INR 2020-12-14 10:25:00 [facility] ESTIMATED GFR 2020-12-14 10:25:00 [facility] Ebrahi HEPATIC FUNCTION PANEL 2020-12-14 10:25:00 [facility] OSMOLALITY, SERUM 2020-12-13 19:00:00 [facility] OSMOLALITY, URINE 2020-12-13 18:00:00 [facility] SODIUM LEVEL 2020-12-13 13:39:00 Shahab Sylvester [facility] URINALYSIS SCREEN AND 2020-12-13 09:17:00 [facility] MICROSCOPY, WITH REFLEX TO CULTURE HCG QUALITATIVE, URINE 2020-12-13 09:17:[address] [facility] SCREEN URINE CULTURE 2020-12-13 09:17:00 [facility] FOLATE LEVEL 2020-12-13 09:02:00 [facility] HEPATITIS A ANTIBODY 2020-12-13 09:02:00 Willie Ferreira [facility] TOTAL HEPATITIS B CORE ANTIBODY 2020-12-13 09:02:00 Willie Ferreira [facility] TOTAL HEPATITIS B SURFACE 2020-12-13 09:02:00 Willie Ferreira [facility] ANTIBODY HEPATITIS B SURFACE 2020-12-13 09:02:00 Willie george [facility] ANTIGEN VITAMIN B12 LEVEL 2020-12-13 09:02:00 Willie Ferreira [facility] TOTAL IRON BINDING 2020-12-13 09:02:00 Willie Ferreira [facility] CAPACITY LIVER-KIDNEY MICROSOME 2020-12-13 09:02:00 [facility] AB, IGG IMMUNOGLOBULIN A 2020-12-13 09:02:00 Willie Ferreira [facility] PROTHROMBIN TIME WITH INR 2020-12-13 09:02:00 Willie Ferreira [facility] HEPATIC FUNCTION PANEL 2020-12-13 09:02:00 [facility] Ebrahim MAGNESIUM LEVEL 2020-12-13 09:02:00 [facility] Ebrahim PHOSPHORUS LEVEL 2020-12-13 09:02:00 [facility] Ebrahim HC COMPLETE BLD COUNT 2020-12-13 09:02:00 [facility] W/AUTO DIFF Ebrahim BASIC METABOLIC PANEL 2020-12-13 09:02:00 [facility] Ebrahim ESTIMATED GFR 2020-12-13 09:02:00 Shahab Sylvester Ho spital Ebrahi FACTOR V ASSAY 2020-12-13 09:02:00 [facility] Ebrahim HEPATITIS A ANTIBODY IGM 2020-12-13 09:02:00 [facility] ANTI SMOOTH MUSCLE AB 2020-12-13 09:02:00 [facility] TITER ALCOHOL LEVEL, BLOOD 2020-12-13 09:02:00 Willie george [facility] HEPATITIS C ANTIBODY 2020-12-13 09:02:00 Willie george [facility] ALPHA-1 ANTITRYPSIN LEVEL 2020-12-13 09:02:00 Willie Ferreira [facility] ANTI SMOOTH MUSCLE AB 2020-12-13 09:02:00 [facility] SCREEN CERULOPLASMIN LEVEL 2020-12-13 09:02:00 NiccinedesDwaind [facility] FERRITIN LEVEL 2020-12-13 09:02:00 [facility] ABDOMEN PELVIS W WO 2020-12-13 06:40:14 [facility] CONTRAST COVID-19 QUALITATIVE 2020-12-13 05:47:00 Rosi Liu [facility] RT-PCR HC COMPLETE BLD COUNT 2020-12-13 03:47:00 [facility] W/AUTO DIFF COMPREHENSIVE METABOLIC 2020-12-13 03:47:[address] [facility] PANEL LIPASE LEVEL 2020-12-13 03:47:00 [facility] AMYLASE LEVEL 2020-12-13 03:47:00 [facility] ESTIMATED GFR 2020-12-13 03:47:00 [facility] BILIRUBIN DIRECT 2020-12-13 03:47:[address] [facility] [address] ABD/PELVIC EXTERNAL 2020-12-12 21:42:00 [facility] STUDY Plan of Care Planned Activity Planned Date Details Comments Source Future Scheduled 2022-11-12 HEPATITIS B VACCINES Met [facility] Test 07:11:52 (1 of 3 - 3-dose series) [code = HEPATITIS B VACCINES (1 of 3 - 3-dose series)] Future Scheduled 2022-11-12 Screening for [facility] Test 07:11:52 malignant neoplasm of cervix (procedure) [code = 172760762] Future Scheduled 2022-11-12 BREAST CANCER [facility] Test 07:11:52 SCREENING [code = BREAST CANCER SCREENING] Future Scheduled 2022-11-12 COLONOSCOPY SCREENING [facility] Test 07:11:52 [code = COLONOSCOPY SCREENING] Future Scheduled 2022-11-12 COVID-19 VACCINE (3 - [facility] Test 07:11:52 Booster for Pfizer series) [code = COVID-19 VACCINE (3 - Booster for Pfizer series)] Future Scheduled 2022-11-12 SHINGLES VACCINES (1 Met [facility] Test 07:11:52 of 2) [code = SHINGLES VACCINES (1 of 2)] Future Scheduled 2022-11-12 INFLUENZA VACCINE Method [facility] Test 07:11:52 [code = INFLUENZA VACCINE] Future Scheduled 2022-11-12 HEPATITIS B VACCINES Met [facility] Test 07:11:52 (1 of 3 - 3-dose series) [code = HEPATITIS B VACCINES (1 of 3 - 3-dose series)] Future Scheduled 2022-11-12 Screening for [facility] Test 07:11:52 malignant neoplasm of cervix (procedure) [code = 754851117] Future Scheduled 2022-11-12 BREAST CANCER [facility] Test 07:11:52 SCREENING [code = BREAST CANCER SCREENING] Future Scheduled 2022-11-12 COLONOSCOPY SCREENING [facility] Test 07:11:52 [code = COLONOSCOPY SCREENING] Future Scheduled 2022-11-12 COVID-19 VACCINE (3 - Me [facility] Test 07:11:52 Booster for Pfizer series) [code = COVID-19 VACCINE (3 - Booster for Pfizer series)] Future Scheduled 2022-11-12 SHINGLES VACCINES (1 Met [facility] Test 07:11:52 of 2) [code = SHINGLES VACCINES (1 of 2)] Future Scheduled 2022-11-12 INFLUENZA VACCINE Method [facility] Test 07:11:52 [code = INFLUENZA VACCINE] Future Scheduled 2021-11-02 Screening for [facility] Test 12:44:30 malignant neoplasm of cervix (procedure) [code = [id number]] Future Scheduled 2021-11-02 BREAST CANCER [facility] Test 12:44:30 SCREENING [code = BREAST CANCER SCREENING] Future Scheduled 2021-11-02 COLONOSCOPY SCREENING [facility] Test 12:44:30 [code = COLONOSCOPY SCREENING] Future Scheduled 2021-11-02 SHINGLES VACCINES Method [facility] Test 12:44:30 (#1) [code = SHINGLES VACCINES (#1)] Future Scheduled 2021-11-02 INFLUENZA VACCINE Method [facility] Test 12:44:30 [code = INFLUENZA VACCINE] Future Scheduled 2021-11-02 COVID-19 VACCINE (3 - Me [facility] Test 12:44:30 Booster for Pfizer series) [code = COVID-19 VACCINE (3 - Booster for Pfizer series)] Encounters Start End Encounter Admission Attending Care Care Encounter Source Date/Time Date/Time Type Type Clinicians Facility Department ID 2022-10-02 2022-10-02 Inpatient Marcie Gibbons [facility] RADI [id number] [facility] 11:00:00 11:00:[address] [facility] 2021-09-01 2021-09-02 Outpt Diag nullFlavo [facility] [id number] Memoria 16:48:00 04:59:00 Services r Outpatient 00 l Imaging [facility] 2021-05-11 2021-05-11 Orders Seralla, 1.2.840.1 [id number] Methodi 00:00:00 00:00:00 Only Leann 15475.1.[address] 3.430.2.7 Hospit a .3.867885 l .8 2021-04-03 2021-04-03 Telemedici Tracey, 1.2.840.1 [id number] Methodi 15:26:31 15:35:15 ne Femi [address]853.1.[address] 3.430.2.7 Hospit a .3.597870 l .8 2021-03-22 2021-03-22 Office Tracey, 1.2.840.1 [id number] Methodi 09:18:30 10:13:25 Visit Femi 85644.1.[address] 3.430.2.7 Hospit a .3.078884 l .8 2021-03-22 2021-03-22 Travel 1.2.840.1 1.2.981.538 [id number] Methodi 00:00:00 00:00:[address] 3.430.2.7 0.2.7.3.698 Ho spita .3.155676 084.8 l .8 2021-03-14 2021-03-14 Rayshawn Wells, 1.2.840.1 [id number] Methodi 12:00:55 12:05:55 Support Manny 24000.1.[address] P. 3.430.2.7 Hospit a .3.418676 l .8 2021-02-21 2021-02-21 Clinical 1.2.840.1 [id number] Methodi 12:03:35 12:08:[address] 3.430.2.7 Hospit a .3.225215 l .8 2021-01-18 2021-01-18 Office [facility], 1.2.840.1 [id number] Methodi 09:36:07 10:40:55 Visit Femi 38524.1.[address] 3.430.2.7 Hospit a .3.565239 l .8 2021-01-18 2021-01-18 Travel 1.2.840.1 1.2.639.066 [id number] Methodi 00:00:00 00:00:[address] 3.430.2.7 0.2.7.3.698 Ho spita .3.201404 084.8 l .8 2020-12-23 2020-12-23 [facility], 1.2.840.1 [id number] Methodi 00:00:00 00:00:00 Only Leann 01119.1.[address] 3.430.2.7 Hospit a .3.055440 l .8 2020-12-21 2020-12-21 Office [facility], 1.2.840.1 [id number] Methodi 12:20:38 12:52:50 Visit Femi 13279.1.[address] 3.430.2.7 Hospit a .3.970270 l .8 2020-12-21 2020-12-21 Travel 1.2.840.1 1.2.676.449 [id number] Methodi 00:00:00 00:00:[address] 3.430.2.7 0.2.7.3.698 Ho spita .3.921322 084.8 l .8 2020-12-16 2020-12-16 Orders Seralla, 1.2.840.1 [id number] Methodi 00:00:00 00:00:00 Only Leann 06579.1.[address] 3.430.2.7 Hospit a .3.946728 l .8 2020-12-12 2020-12-14 Hospital Rosi Liu 1.2.840.1 [id number] Methodi 19:30:00 18:15:00 Encounter Shahab Sylvester 25474.1.[address] Vo, Le 3.430.2.7 Hospit a .3.123255 l .8 Results Test Description Test Time Test Comments Results Result Comments Source Comprehensive metabolic panel 2021-03-21 08:45:00 Test Item Value Reference Range Interpretation Comme nts Glucose (test code = 99 mg/dL 65-99 Fastin g reference 2345-7) interval BUN (test code = 3094-0) 9 mg/dL 7-25 Creatinine (test code = 0.49 mg/dL 0.50-1.10 L 2160-0) EGFR Non-Afr. Bruneian See_Comment [Aut omated message] (test code = 2775) The [employer] which generated this result transmitted ref erence range: > OR = 6 0 mL/min/1.73m2. The reference range was not used to int erpret this result as normal/abnormal . EGFR See_Comment [Auto mated message] (test code = 2774) The [employer] which generated this result transmitted ref erence range: > OR = 6 0 mL/min/1.73m2. The reference range was not used to int erpret this result as normal/abnormal . BUN/creatinine ratio (test See_Comment [Automated message] code = 3097-3) The system [employer] ich generated this result transmitted ref erence range: 6 - 22 ( calc). The reference r maria luz was not used to interpret this result as normal/abnor mal. Sodium (test code = 136 mmol/L 647-906 1153-2) Potassium (test code = 3.9 mmol/L 3.5-5.3 2823-3) Chloride (test code = 104 mmol/L 98-110 5-0) CO2 (test code = 2027-9) 24 mmol/L 20-32 Calcium (test code = 9.7 mg/dL 8.6-10.2 28784-1) Protein (test code = 7.4 g/dL 6.1-8.1 2885-2) Albumin, S (test code = 4.0 g/dL 3.6-5.1 1751-7) Globulin, total (test code See_Comment [Automated message] = 25006-1) The system whic h generated this result transmitted ref erence range: 1.9 - 3. 7 g/dL (calc). The ref erence range was not u sed to interpret this result as normal/abnor mal. Albumin/globulin ratio See_Comment [Aut omated message] (test code = 1759-0) The sys tem which generated this result transmitted ref [...] Performing Organization Information: Site ID: [email or web address] Address: [address] [place] [phone] Director: Sb Collier Lab Interpretation (test Abnormal code = 70841-8) [facility] with platelet and [id number] 08:45:00 Test Item Value Reference Range Interpretation Comments WBC (test code = See_Comment [Automated 7684-2) message] The system which generated this result [...] ID: [facility] Name: [facility] Lab Address: [address] [place] [phone] Director: Sb Collier Lab Interpretation Abnormal (test code = 22266-3) [facility] [id number] 08:45:00 Test Item Value Reference Range Interpretation Comments INR (test code = Reference R maria luz 6301-6) 0.9-1.1Moderate -i ntensity Warfar in Therapy 2.0-3.0Higher-i nt ensity Warfarin Therapy 3.0-4.0 Prothrombin time See_Comment H For additio nal (test code = 5902-2) informa tion, please refer [email or web address] 4( This link is being provided for [...] ID: [facility] Name: [facility] Lab Address: [address] [place] [phone] Director: Sb Collier Lab Interpretation Abnormal (test code = 70356-7) [facility] metabolic [id number] 10:48:00 Test Item Value Reference Range Interpretation Comments Glucose (test code = 88 mg/dL 65-99 Fastin g 2345-7) reference interval BUN (test code = 7 mg/dL 7-25 3094-0) Creatinine (test 0.45 mg/dL 0.50-1.10 L code = 2160-0) EGFR Non-Afr. See_Comment [Automated Bruneian (test code message] The = 6975) system which generated this result transmitted reference range : > OR = 60 mL/min/1.73m2. The reference range was not used to interpr et this result as normal/abnormal . EGFR See_Comment [Automated Bruneian (test code message] The = 32906-6) system which generated this result transmitted reference [...] . Sodium (test code = 138 mmol/L 628-549 3497-2) Potassium (test code 3.6 mmol/L 3.5-5.3 = 2823-3) Chloride (test code 108 mmol/L 98-110 = 2075-0) CO2 (test code = 25 mmol/L 20-32 2027-9) Calcium (test code = 8.8 mg/dL 8.6-10.2 08007-7) ARTHUR (test code = FASTING:YESFASTING ARTHUR) : YES RAC (test code = Performing RAC) Organization Information: Site ID: RGA [facility]: [email or web address] Address: [address] [place] [phone] Director: Sb Collier Lab Interpretation Abnormal (test code = 28652-5) [facility] [id number] 10:48:00 Test Item Value Reference Range Interpretation Comments Protein (test code = 6.6 g/dL 6.1-8.1 2885-2) Albumin, S (test 2.9 g/dL 3.6-5.1 L code = 1751-7) Globulin, total See_Comment [Automated (test code = message] The 41454-5) system which generated this result transmitted reference [...] 8.4 mg/dL 0.2-1.2 H (test code = 1974-) Bilirubin direct 3.9 mg/dL See_Comment H [Automated [...] RAC) Organization Information: Site ID: RGA Name: [email or web address] Address: [address] [place] [phone] Director: Sb Collier Lab Interpretation Abnormal (test code = 57763-8) [facility]
[2022-12-06 16:06] LABS: Hematocrit 24.9 % (36.0-45.0); MCV 116.6 fL (80-100); MPV 7.1 fL (7.6-11.3); RBC Red Blood Cell Count 2.13 M/uL (3.86-4.86)
[2022-12-06 16:10] LABS: Magnesium 1.7 mg/dL (1.6-2.4); Phosphorus 2.4 mg/dL (2.5-4.9)
[2022-12-06 16:12] LABS: Potassium 2.9 mmol/L (3.5-5.1)
[2022-12-06] MEDS ORDERED: KCL 20 MEQ/100 mL IVPB 100 ML IV ONE ×2 (16:34→18:02)
[2022-12-06] MEDS ORDERED: NA CHLORIDE 0.9% 1,000 ML ONE (16:34)
[2022-12-06 16:36] LABS: White Blood Cell Scan OK (OK)
[2022-12-06 16:39] LABS: Anisocytosis SLIGHT; Blood Morphology Comment NOTED (NOT SEEN); Platelet Estimate ADEQ; Polychromasia SLIGHT
[2022-12-06 17:16] LABS: Macrocytosis 2+
--- NOTE | 2022-12-06 18:50 | ER ---
Nurse's Notes [facility] Name: Flori Person Age: 52 yrs Sex: Female : 1970 Arrival Date: 12/06/2022 Time: 14:40 Bed 16 Private MD: Diagnosis: Hypokalemia Presentation: 12/06 14:43 Chief complaint: Patient states: doctor Brice sent her here for potassium IV, had labs iw drawn on Saturday and it was 2.6 , she has cirrhosis. Coronavirus screen: At this time, the client does not indicate any symptoms associated with coronavirus-19. Ebola Screen: Patient negative for fever greater than or equal to 101.5 degrees Fahrenheit, and additional compatible Ebola Virus Disease symptoms Patient denies exposure to infectious person. Patient denies travel to an Ebola-affected area in the 21 days before illness onset. No symptoms or risks identified at this time. Initial Sepsis Screen: Does the patient meet any 2 criteria? No. Patient's initial sepsis screen is negative. Does the patient have a suspected source of infection? No. Patient's initial sepsis screen is negative. Risk Assessment: Do you want to hurt yourself or someone else? Patient reports no desire to harm self or others. Onset of symptoms was December 06, 2022. 14:43 Method Of Arrival: Ambulatory iw 14:43 Acuity: MADELINE 3 iw Historical: - Allergies: 14:45 No Known Allergies; iw - Home Meds: 14:45 folic acid 1 mg Oral tab [Active]; iw 14:47 Xifaxan 550 mg oral tab 1 tab 2 times per day [Active]; lactulose 10 gram/15 mL Oral iw soln 15 mL twice a day [Active]; 19:12 Lasix 20 mg Oral tab 1 tab once daily [Active]; spironolactone 100 mg Oral tab 1 tab eh3 once daily [Active]; - PMHx: 14:45 cirrhosis of liver; iw - PSHx: 14:47 tubal ligation; iw - Immunization history:: Client reports receiving the 2nd dose of the Covid vaccine. - Social history:: Smoking status: Patient denies any tobacco usage or history of. Screenin:00 [facility] ED Fall Risk Assessment (Adult) History of falling in the last 3 months, eh3 including since admission No falls in past 3 months (0 pts) Confusion or Disorientation No (0 pts) Intoxicated or Sedated No (0 pts) Impaired Gait No (0 pts) Mobility Assist Device Used No (0 pt) Altered Elimination No (0 pt) Score/Fall Risk Level 0 - 2 = Low Risk. Abuse screen: Denies threats or abuse. Denies injuries from another. Nutritional screening: No deficits noted. Tuberculosis screening: No symptoms or risk factors identified. Assessment: 15:00 General: Appears in no apparent distress. uncomfortable, Behavior is calm, cooperative, eh3 appropriate for age. Pain: Denies pain. Neuro: Level of Consciousness is awake, alert, obeys commands, Oriented to person, place, time, situation. Cardiovascular: Capillary refill < 3 seconds Patient's skin is warm and dry. Respiratory: Airway is patent Respiratory effort is even, unlabored, Respiratory pattern is regular, symmetrical. GI: No signs and/or symptoms were reported involving the gastrointestinal system. Abdomen is round distended. : No signs and/or symptoms were reported regarding the genitourinary system. EENT: No signs and/or symptoms were reported regarding the EENT system. Eyes jaundiced. Derm: No signs and/or symptoms reported regarding the dermatologic system. Skin is intact, Skin is yellow. Musculoskeletal: No signs and/or symptoms reported regarding the musculoskeletal system. Circulation, motion, and sensation intact. Range of motion: intact in all extremities. 15:45 Reassessment: Patient appears in no apparent distress at this time. Patient and/or eh3 family updated on plan of care and expected duration. Pain level reassessed. Patient is alert, oriented x 3, equal unlabored respirations, skin warm/dry/pink. 16:45 Reassessment: Patient appears in no apparent distress at this time. Patient and/or eh3 family updated on plan of care and expected duration. Pain level reassessed. Patient is alert, oriented x 3, equal unlabored respirations, skin warm/dry/pink. 17:45 Reassessment: Patient appears in no apparent distress at this time. Patient and/or eh3 family updated on plan of care and expected duration. Pain level reassessed. Patient is alert, oriented x 3, equal unlabored respirations, skin warm/dry/pink. 18:45 Reassessment: Patient appears in no apparent distress at this time. Patient and/or eh3 family updated on plan of care and expected duration. Pain level reassessed. Patient is alert, oriented x 3, equal unlabored respirations, skin warm/dry/pink. Vital Signs: 14:43 BP 119 / 79; Pulse 102; Resp 16; Temp 97.8; Pulse Ox 98% on R/A; Weight 48.53 kg; iw Height 4 ft. 11 in. (149.86 cm); 15:45 BP 113 / 81; Pulse 98; Resp 16; Pulse Ox 100% on R/A; eh3 16:45 BP 105 / 51; Pulse 89; Resp 17; Pulse Ox 100% on R/A; eh3 17:45 BP 116 / 75; Pulse 90; Resp 18; Pulse Ox 100% on R/A; eh3 18:45 BP 116 / 84; Pulse 93; Resp 18; Pulse Ox 100% on R/A; eh3 14:43 Body Mass Index 21.61 (48.53 kg, 149.86 cm) iw ED Course: 14:40 Patient arrived in ED. mr 14:45 Triage completed. iw 14:47 Dana Posadas PA-C is PHCP. sb4 14:47 Branden Rivero MD is Attending Physician. sb4 14:48 Arm band placed on. iw 14:56 Connie Carey, SYDNI is Primary Nurse. eh3 15:00 Patient has correct armband on for positive identification. Placed in gown. Bed in low eh3 position. Call light in reach. Side rails up X2. Client placed on continuous cardiac and pulse oximetry monitoring. NIBP monitoring applied. Door closed. Noise minimized. Warm blanket given. 15:10 Missed attempt(s): 22 gauge in right antecubital area. Bleeding controlled, band aid eh3 applied, catheter tip intact. 19:12 No provider procedures requiring assistance completed. IV discontinued, intact, eh3 bleeding controlled, No redness/swelling at site. Pressure dressing applied. Administered Medications: 16:45 Drug: Potassium Chloride 20 mEq Route: IV; Rate: calculated rate; Site: left eh3 antecubital; 19:12 Follow up: Response: No adverse reaction; IV Status: Completed infusion; IV Intake: eh3 200ml 16:45 Drug: NS 0.9% 1000 ml Route: IV; Rate: 100 ml/hr; Site: left antecubital; eh3 19:11 Follow up: IV Status: Completed infusion; IV Intake: 325ml eh3 Medication: 19:12 VIS not applicable for this client. eh3 Intake: 19:11 IV: 325ml; Total: 325ml. eh3 19:12 IV: 200ml; Total: 525ml. eh3 Outcome: 18:50 Discharge ordered by . sb4 19:12 Discharged to home ambulatory. eh3 19:12 Condition: stable 19:12 Discharge instructions given to patient, Instructed on discharge instructions, follow up and referral plans. Demonstrated understanding of instructions, follow-up care. 19:13 Patient left the ED. eh3 Signatures: Fidelia Montgomery mr Dee Velez, RN RN iw Connie Carey RN RN eh3 Dana Posadas, [place] sb4 Corrections: (The following items were deleted from the chart) 14:48 14:47 PSHx: None; [facility] 16:48 14:45 NS 0.9% 1000 ml IV at 100 ml/hr in left antecubital eh3 eh3 16:54 14:45 Reassessment: Patient appears in no apparent distress at this time. Patient eh3 and/or family updated on plan of care and expected duration. Pain level reassessed. Patient is alert, oriented x 3, equal unlabored respirations, skin warm/dry/pink. eh3
--- NOTE | 2022-12-06 18:50 | EDPHYS ---
Physician Documentation [facility] Name: Flori Person Age: 52 yrs Sex: Female : 1970 Arrival Date: 12/06/2022 Time: 14:40 Bed 16 Private MD: ED Physician Branden Rivero HPI: 12/06 15:15 This 52 yrs old Female presents to ER via Ambulatory with complaints of sb4 Abnormal Lab Results. 15:15 Patient had labs drawn by her tobacco roller on Saturday. She was called today and sb4 notified that her potassium was 2.6 and sent to ED for IV potassium. She was seen here and treated for the same thing 2 weeks ago.. Historical: - Allergies: 14:45 No Known Allergies; iw - Home Meds: 14:45 folic acid 1 mg Oral tab [Active]; iw 14:47 Xifaxan 550 mg oral tab 1 tab 2 times per day [Active]; lactulose 10 gram/15 mL Oral iw soln 15 mL twice a day [Active]; 19:12 Lasix 20 mg Oral tab 1 tab once daily [Active]; spironolactone 100 mg Oral tab 1 tab eh3 once daily [Active]; - PMHx: 14:45 cirrhosis of liver; iw - PSHx: 14:47 tubal ligation; iw - Immunization history:: Client reports receiving the 2nd dose of the Covid vaccine. - Social history:: Smoking status: Patient denies any tobacco usage or history of. ROS: 15:15 Cardiovascular: Negative for chest pain, palpitations, and edema, Respiratory: Negative sb4 for shortness of breath, cough, wheezing, and pleuritic chest pain, Abdomen/GI: Negative for abdominal pain, nausea, vomiting, diarrhea, and constipation. 15:15 Neuro: Negative for headache, weakness, numbness, tingling, and seizure, Psych: Negative for depression, anxiety, suicide ideation, homicidal ideation, and hallucinations. 15:15 Eyes: Positive for icterus, Negative for blurry vision, visual disturbance. 15:15 MS/extremity: Positive for muscle cramps. 15:15 Skin: Positive for jaundice. Exam: 15:15 Chest/axilla: Normal chest wall appearance and motion. Nontender with no deformity. sb4 No lesions are appreciated. Cardiovascular: Regular rate and rhythm with a normal S1 and S2. Respiratory: Lungs have equal breath sounds bilaterally, clear to auscultation and percussion. No rales, rhonchi or wheezes noted. No increased work of breathing, no retractions or nasal flaring. Abdomen/GI: Soft, non-tender, no distension. MS/ Extremity: Pulses equal, no cyanosis. Neurovascular intact. Full, normal range of motion. Neuro: Awake and alert, GCS 15, oriented to person, place, time, and situation. Cranial nerves II-XII grossly intact. Motor strength 5/5 in all extremities. Sensory grossly intact. Cerebellar exam normal. Normal gait. Psych: Awake, alert, with orientation to person, place and time. Behavior, mood, and affect are within normal limits. 15:15 Constitutional: The patient appears in no acute distress, alert, awake. 15:15 Head/face: Noted is 15:15 Head/face: 15:15 Head/face: Exam is negative for acute changes. 15:15 Eyes: Exam is negative for acute changes, Sclera: icterus, is not appreciated. 15:15 Skin: jaundiced. Vital Signs: 14:43 BP 119 / 79; Pulse 102; Resp 16; Temp 97.8; Pulse Ox 98% on R/A; Weight 48.53 kg; iw Height 4 ft. 11 in. (149.86 cm); 15:45 BP 113 / 81; Pulse 98; Resp 16; Pulse Ox 100% on R/A; eh3 16:45 BP 105 / 51; Pulse 89; Resp 17; Pulse Ox 100% on R/A; eh3 17:45 BP 116 / 75; Pulse 90; Resp 18; Pulse Ox 100% on R/A; eh3 18:45 BP 116 / 84; Pulse 93; Resp 18; Pulse Ox 100% on R/A; eh3 14:43 Body Mass Index 21.61 (48.53 kg, 149.86 cm) iw MDM: 15:04 Patient medically screened. sb4 17:45 Data reviewed: vital signs, nurses notes, lab test result(s), and as a result, I will sb4 discharge patient. 18:50 Response to treatment: the patient's condition has returned to base line. Response to sb4 treatment: and as a result, I will discharge patient. 12/06 14:48 Order name: CBC w/o diff; Complete Time: 17:23 sb4 12/06 14:48 Order name: BMP; Complete Time: 16:13 sb4 12/06 14:48 Order name: Magnesium; Complete Time: 16:13 sb4 12/06 14:48 Order name: Phosphorus; Complete Time: 16:13 sb4 12/06 16:25 Order name: CBC Smear Scan; Complete Time: 17:23 EDMS 12/06 14:48 Order name: IV Start; Complete Time: 15:47 sb4 12/06 14:48 Order name: Cardiac monitoring; Complete Time: 15:10 sb4 Administered Medications: 16:45 Drug: Potassium Chloride 20 mEq Route: IV; Rate: calculated rate; Site: left [facility] antecubital; 19:12 Follow up: Response: No adverse reaction; IV Status: Completed infusion; IV Intake: eh3 200ml 16:45 Drug: NS 0.9% 1000 ml Route: IV; Rate: 100 ml/hr; Site: left antecubital; 3 19:11 Follow up: IV Status: Completed infusion; IV Intake: 325ml eh3 Disposition: 19:17 Co-signature as Attending Physician, Branden Rivero MD I agree with the assessment and kdr plan of care. Disposition Summary: 12/06/22 18:50 Discharge Ordered Location: Home sb4 Problem: an ongoing problem sb4 Symptoms: have improved sb4 Condition: Stable sb4 Diagnosis - Hypokalemia sb4 Followup: sb4 - With: Private Physician - When: 1 week - Reason: Recheck today's complaints, Re-evaluation by your physician Discharge Instructions: - Discharge Summary Sheet sb4 - Hypokalemia sb4 Forms: - Medication Reconciliation Form sb4 - Thank You Letter sb4 - Antibiotic Education sb4 - Prescription Opioid Use sb4 Signatures: Dispatcher [employer] Branden Childs MD MD kdr Williams, Irene, RN RN iw Connie Carey RN RN 3 Dana Posadas PA-C PA-C sb4 Corrections: (The following items were deleted from the chart) 14:48 14:47 PSHx: None; iw iw
[2022-12-06 20:11] VITALS: TEMP 97.8
[2022-12-06 20:34] VITALS: O2SAT 100
[2022-12-06 20:37] VITALS: BP 116/84
== END 2022-12-06 19:13 | disposition home or self-care (01) ==
LOC: ER 14:37
DX: E87.6 Hypokalemia (principal); K74.60 Unspecified cirrhosis of liver
CPT/HCPCS: 80048; 36415; 83735; 84100; 85027; J3480 ×2; J7030